=== PATIENT | female | born 1955 | race Caucasian/White ===

== ENCOUNTER 2019-09-18 16:15 | Emergency (ER) | payer OTHER, SELFPAY ==
--- NOTE | ~2019-09-18 | CT_ITS ---
EXAMINATION: CT abdomen pelvis w con EXAM DATE: 09/18/2019 18:33 INDICATION: Left lower quadrant, pubic pain. TECHNIQUE: Spiral CT of the abdomen and pelvis was performed following intravenous injection of 100 m L Omnipaque 350. Axial, coronal and sagittal images were reviewed. The dose-length product (DLP) fo r this examination was 1414.62 mGy-cm. The exposure was tailored according to patient size (auto mA exposure control), and iterative reconstruction (ASIR) was used as additional dose reduction techniqu e. Comparison is made to prior examination from 01/02/2019. FINDINGS: The liver, spleen, adrenal glands and pancreas are unremarkable. Gallbladder not identifie d, patient likely has had cholecystectomy. Portal and splenic veins are patent. Kidneys enhance sym metrically. There is no hydronephrosis. Multiple small renal cysts largest on the left at 2.3 cm. T he uterus is not identified and has likely been surgically resected. The bladder is unremarkable. T here is no retroperitoneal or pelvic lymphadenopathy. There is mild scattered arteriosclerotic dise ase. The appendix is not positively visualized. There is no pericecal inflammatory change to suggest appe ndicitis. The stomach and small bowel are unremarkable. There is mild scattered colonic diverticulo sis. There is no adjacent inflammatory change to suggest diverticulitis. There is expected amount of colonic stool. No free intraperitoneal gas. The heart is normal in size. There are no pericardi al or pleural effusions. The lung bases are unremarkable. There are no osteoblastic or osteolytic l esions identified. Pubis symphysis is unremarkable. IMPRESSION: 1. No acute intra-abdominal findings. 2. Mild scattered colonic diverticulosis. Reviewed, dictated and finalized at location A.
[2019-09-18 16:20] VITALS: BP 142/92; PULSE 86; RESP 20; TEMP 36.9; O2SAT 100
--- NOTE | 2019-09-18 16:37 | ED.GENADULT ---
HPI - General Adult General Chief complaint: Extremity Injury, Lower Stated complaint: Rash Time Seen by Provider: 09/18/19 16:18 History of Present Illness HPI narrative: Patient is a 64-year-old female who presents to the ER with a rash in her left pannus in her left breast. Developed 3 days ago. Itchy and uncomfortable. Is been weeping so she is placed toilet paper between her skin folds. Has not had a similar rash before. Has not done anything to help treat it. Also in passing patient noted that she has had some trouble with hemorrhoids have been bleeding recently. She is on Coumadin. Denies any recent constipation. No additional complaints. Related Data Home Medications Medication Instructions Recorded Confirmed amlodipine 5 mg PO DAILY 09/18/19 09/18/19 baclofen 10 mg PO DAILY 09/18/19 09/18/19 docusate sodium [DOK] 100 mg PO DAILY 09/18/19 09/18/19 duloxetine 60 mg PO DAILY 09/18/19 09/18/19 duloxetine mg PO 09/18/19 famotidine 40 mg PO DAILY 09/18/19 09/18/19 gabapentin 300 mg PO BID 09/18/19 09/18/19 metoprolol succinate 50 mg PO DAILY 09/18/19 09/18/19 omeprazole 40 mg PO DAILY 09/18/19 09/18/19 rivaroxaban [Xarelto] 20 mg PO DAILY 09/18/19 09/18/19 topiramate [Topamax] 50 mg PO DAILY 09/18/19 09/18/19 Allergies Allergy/AdvReac Type Severity Reaction Status Date / Time sertraline Allergy Unknown Unknown Verified 12/08/18 17:37 Review of Systems Review of Systems: All systems reviewed & are unremarkable except as noted in HPI and below Constitutional: Constitutional: Denies chills, Denies fever(s) and Denies weakness ENT: Denies nasal congestion and Denies sore throat Gastrointestinal: Gastrointestinal: Denies abdominal pain, Reports diarrhea, Denies nausea and Denies vomiting Comments: Rectal bleeding PMFSH Past Medical History Medical History (Updated 09/18/19 @ 19:01 by Chalo Caro MD) Anxiety Brain tumor (benign) Chronic kidney disease Depression GERD (gastroesophageal reflux disease) Hypertension Irritable bowel syndrome Myocardial infarction Obstructive sleep apnea Peptic ulcer disease Pulmonary embolism Seizure disorder Surgical History Surgical History (Updated 09/18/19 @ 16:43 by Chalo Caro MD) H/O cardiac catheterization History of appendectomy History of cholecystectomy History of hysterectomy Social History Social History (Updated 09/18/19 @ 16:43 by Chalo Caro MD) Social History: Non-smoker Exam Narrative: Exam Narrative: GENERAL: Well-appearing, well-nourished, and in no acute distress. HEAD: Normocephalic, atraumatic. ENT: Mucous membranes moist. CHEST: Clear to auscultation. No respiratory distress. HEART: Regular rate and rhythm. Normal peripheral pulses. ABDOMEN: Soft, suprapubic/left lower quadrant tenderness, nondistended, rectal exam with nonthrombosed nonbleeding external hemorrhoids, BRISEIDA with brown guaiac-negative stool and normal tone. EXTREMITIES: Normal range of motion. No edema. SKIN: Warm, dry, yeast like rash under left breast and left panus with skin flaking and pinkish hue to skin. No overt cellulitis. NEURO: Alert and oriented x3. PSYCH: Normal mood and affect. Course Course Emergency Course: Patient informed of results. Discussed elevated leukocytosis and possible CLL diagnosis. I have called patient's PCP to make them aware but regardless patient needs to follow-up in clinic, I discussed this with Dr. Nguyen. Patient also has mildly elevated blood sugar and this could represent her developing type 2 diabetes. Again this is something she needs to follow-up with outpatient. Vital Signs Vital signs: Vital Signs Temperature 98.4 F 09/18/19 16:20 Pulse Rate 86 09/18/19 16:20 Respiratory Rate 20 09/18/19 16:20 Blood Pressure 142/92 H 09/18/19 16:20 Pulse Oximetry 100 09/18/19 16:20 Temperature 98.4 F 09/18/19 16:20 Pulse Rate 78 09/18/19 18:47 Respiratory Rate 18 09/18/19 18:47 Bl
[2019-09-18 16:47] LABS: Basophils Absolute Auto 0.1 K/mm3 (0.0-0.1); Basophils Percent Auto 0.6 % (0.2-1.2); Eosinophils Absolute Auto 0.3 K/mm3 (0-0.3); Eosinophils Percent Auto 1.7 % (0-4.4); Hematocrit 42.2 % (37.0-47.0); Hemoglobin 12.1 g/dL (12.0-15.0); Immature Granulocyte Absolute 0.16 K/mm3 (0.00-0.031); Immature Granulocyte Percent A 0.9 % (0-0.5); Lymphocytes Absolute Auto 7.14 K/mm3 (0.9-3.2); Mean Corpuscular HGB Conc 28.7 g/dl (32-36); Mean Corpuscular Hemoglobin 26.2 pg (26-34); Mean Corpuscular Volume 91.3 fl (80-100); Mean Platelet Volume 10.3 fl (7.4-10.4); Monocytes Absolute Auto 1.1 K/mm3 (0.1-0.6); Monocytes Percent Auto 6.3 % (2.6-8.5); Neutrophils Absolute Auto 8.6 K/mm3 (1.3-6.7); Neutrophils Percent Auto 49.5 % (45.5-73.1); Platelet Count Result 361 k/mm3 (150-375); Red Blood Count 4.62 M/mm3 (4.2-5.4); Red Cell Distribution Width 16.2 % (11.5-14.5); White Blood Count 17.4 K/mm3 (4.5-10.0)
[2019-09-18 16:58] LABS: Blood Urea Nitrogen 22 mg/dL (7-17); Calcium 9.2 mg/dL (8.4-10.2); Carbon Dioxide 20 mmol/L (22-30); Chloride 108 mmol/L (98-107); Estimated CRCL calculation 58 ml/min; Estimated Glomerular Filt Rate 50; Glucose 172 mg/dL (65-105); Hypochromasia 1+ (NORMAL); Platelet Estimate Adequate (Adequate); Potassium 3.9 mmol/L (3.4-5.0); Sodium 138 mmol/L (137-145)
[2019-09-18 17:03] LABS: INR 1.9; Prothrombin Time 21.1 Seconds (11.1-14.7)
[2019-09-18 17:04] LABS: Partial Thromboplastin Time 51.4 SECONDS (22.3-36.8)
[2019-09-18 17:39] VITALS: BP 130/63; PULSE 74
[2019-09-18 17:40] VITALS: BP 135/68; PULSE 89
[2019-09-18 17:42] VITALS: BP 115/83; PULSE 97
[2019-09-18 18:47] VITALS: BP 120/68; PULSE 78; RESP 18; O2SAT 100
== END 2019-09-18 19:23 | disposition home or self-care (01) ==
PROVIDERS: Emergency Provider Emergency Medicine; PCP Family Medicine
DX: B37.2 Candidiasis of skin and nail (principal); R73.9 Hyperglycemia, unspecified; D72.829 Elevated white blood cell count, unspecified; I12.9 Hypertensive chronic kidney disease with stage 1 through stage 4 chronic kidney disease, or unspecified chronic kidney disease; N18.9 Chronic kidney disease, unspecified; K21.9 Gastro-esophageal reflux disease without esophagitis; K58.9 Irritable bowel syndrome, unspecified; I25.2 Old myocardial infarction; G47.33 Obstructive sleep apnea (adult) (pediatric); Z87.11 Personal history of peptic ulcer disease; Z86.711 Personal history of pulmonary embolism; Z79.01 Long term (current) use of anticoagulants; K57.90 Diverticulosis of intestine, part unspecified, without perforation or abscess without bleeding
CPT/HCPCS: 36415; 74177; 80048; 85025; 85610; 85730; 99284; Q9967